=== PATIENT | female | born 1990 ===

== ENCOUNTER 2017-12-20 19:18 | Emergency (ER) | payer MEDICAID, OTHER ==
[2017-12-20 19:18] VITALS: BMI 28.0
[2017-12-20 19:36] VITALS: BP 111/75; PULSE 86; RESP 16; TEMP 98.1; O2SAT 100
--- NOTE | 2017-12-20 19:44 | C.PDOC ---
History Of Present Illness 27 year old female presents to ED for staple removal from scalp after laceration repair 6 days ago. Offers no complaints. Time Seen by Provider: 12/20/17 19:39 Chief Complaint (Nursing): Suture/Staple Removal History Per: Patient History/Exam Limitations: no limitations Onset/Duration Of Symptoms: Days Ago (6) Past Medical History Reviewed: Historical Data, Nursing Documentation, Vital Signs Vital Signs: Last Vital Signs Temp 98.1 F 12/20/17 19:32 Pulse 86 12/20/17 19:32 Resp 16 12/20/17 19:32 BP 111/75 12/20/17 19:32 Pulse Ox 100 12/20/17 19:44 - Medical History PMH: Asthma Surgical History: - [facility] DPT ADMINISTRATION (01/02/15) IMMOBILIZ/WOUND ATTN NEC (08/17/14) Family History: States: Unknown Family Hx - Social History Hx Tobacco Use: No Hx Alcohol Use: No Hx Substance Use: No - Immunization History Hx Tetanus Toxoid Vaccination: No Hx Influenza Vaccination: No Hx Pneumococcal Vaccination: No Review Of Systems Except As Marked, All Systems Reviewed And Found Negative. Physical Exam - Physical Exam Appears: Non-toxic, No Acute Distress Skin: Warm, Dry Head: Atraumatic, Normacephalic, Other (3 edouard to left parietal asclp) Eye(s): bilateral: Normal Inspection Neck: Normal ROM Chest: Symmetrical Extremity: Bilateral: Atraumatic, Normal ROM Neurological/Psych: Oriented x3, Normal Speech ED Course And Treatment O2 Sat by Pulse Oximetry: 100 Medical Decision Making Medical Decision Makin edouard removed without difficulty. Patient stable for discharge Disposition Counseled Patient/Family Regarding: Diagnosis, Need For Followup - Disposition Disposition: HOME/ ROUTINE Disposition Time: 19:44 Condition: GOOD Instructions: Stitches Removal Forms: [employer] (Nepalese) - POA Present On Arrival: None - Clinical Impression Clinical Impression: Removal of edouard
== END 2017-12-20 19:58 | disposition home or self-care (01) ==
LOC: C.ER 19:18
DX: Z48.02 Encounter for removal of sutures (principal)